=== PATIENT | male | born 1970 | race Two or more races ===

== ENCOUNTER 2024-10-28 23:07 | Inpatient (IN) | payer MEDICAID, OTHER ==
[~2024-10-28] VITALS: Ht 165.1 cm; Wt 94.1 kg
[2024-10-29] MEDS: ONDANSETRON HCL 4 MG/2 ML VIAL IV ONE
--- NOTE | 2024-10-29 00:14 | ED.PDOC ---
GI ASSESSMENT HPI Comments 54-year-old male came to ER fo abdominal pain. Patient states he has been experiencing diffuse abdominal pain, intermittent, aching for the past 3 days. Noted have episodes of nausea, vomiting, diarrhea and loss of appetite. States he could not keep anything in. Denies any history of abdominal surgeries. Chief Complaint: Abdominal pain Time Seen by MD: 00:13 Reviewed Notes: Nurses Notes Allergies: Coded Allergies: No Known Drug Allergy (Verified Allergy, Unknown, 10/29/24) Information Source: Patient Mode of Arrival: Ambulatory Timing: Days Duration: Intermittent Prehospital treatment: None Quality: Aching Vomitus: Watery Stool: Loose, Watery Severity: Moderate Recent: None Recent Hx of: None Pain Location: Diffuse Associated sign and symptoms: Nausea, Vomiting, Diarrhea, Abdominal Pain, Anorexia Past Medical History PAST MEDICAL HISTORY: DM Surgical History: Denies all surgeries Family History Family History: Reviewed,noncontributory to illness Social History Smoker: Non-Smoker Alcohol: Denies ETOH Use Drugs: Denies Drug Use Lives In: Home Constitutional: denies: chills, diaphoresis, fatigue, fever, malaise, sweats, weakness, others EENTM: denies: blurred vision, double vision, ear bleeding, ear discharge, ear drainage, ear pain, ear ringing, eye pain, eye redness, hearing loss, mouth pain, mouth swelling, nasal discharge, nose bleeding, nose congestion, nose pain, photophobia, tearing, throat pain, throat swelling, voice changes, others Respiratory: denies: cough, hemoptysis, orthopnea, SOB at rest, shortness of breath, SOB with excertion, stridor, wheezing, others Cardiovascular: denies: chest pain, dizzy spells, diaphoresis, Dyspnea on exertion, edema, irregular heart beat, left arm pain, lightheadedness, palpitations, PND, syncope, others Gastrointestinal: reports: abdominal pain, diarrhea, nausea, poor appetite, vomiting; denies: abdomen distended, blood streaked bowels, constipated, dysphagia, difficulty swallowing, hematemesis, melena, poor fluid intake, rectal bleeding, rectal pain, others Genitourinary: denies: burning, dysuria, flank pain, frequency, hematuria, incontinence, penile discharge, penile sore, pain, testicle pain, testicle swelling, urgency, others Neurological: denies: dizziness, fainting, headache, left sided numbness, left sided weakness, numbness, paresthesia, pre-existing deficit, right sided numbness, right sided weakness, seizure, speech problems, tingling, tremors, weakness, others Musculoskeletal: denies: back pain, gout, joint pain, joint swelling, muscle pain, muscle stiffness, neck pain, others Integumetry: denies: bruises, change in color, change in hair/nails, dryness, laceration, lesions, lumps, rash, wounds, others Allergic/Immunocompromised: denies: Difficulty Healing, Frequent Infections, Hives, Itching, others Hematologic/Lymphatic: denies: anemia, blood clots, easy bleeding, easy bruising, swollen glands, others Endocrine: denies: excessive hunger, excessive sweating, excessive thirst, excessive urination, flushing, intolerance to cold, intolerance to heat, unexplained weight gain, unexplained weight loss, others Psychiatric: denies: anxiety, bipolar disorder, depression, hopeless, panic disorder, schizophrenia, sleepless, suicidal, others Physical Exam General Appearance: No Apparent Distress, Obese HEENT: Other (Pupils and face symmetric. Moist mucous membranes.) Neck: Full Range of Motion, Normal Inspection Respiratory: Lungs Clear, No Accessory Muscle Use, No Respiratory Distress, Normal Breath Sounds Cardiovascular: No Edema, No JVD, Regular Rate/Rhythm Breast Exam: Deferred Gastrointestinal: Diffuse, Soft, Tenderness Genitalia: Deferred Pelvic: Deferred Rectal: Deferred Extremities: Normal inspection, Normal range of motion, Non-tender, No pedal edema Neurologic: Alert (Oriented x4), Normal Affect, Normal Mood, Other (Ambulatory) Cerebellar Function: NOT DONE Reflexes: NOT DONE Skin: Dry, Normal Color, Warm Lymphatic: NOT DONE Was a procedure done? Was a procedure done?: No GI differential Dx Differential Diagnosis: Cholecystitis, Diverticular disease, Gastritis/PUD, Gastroenteritis, Ischemic Bowel, Pancreatitis, UTI, Urolithiasis, Dehydration, Diabetes/ DKA, Electrolyte Imbalance, Food Poisoning, Bacterial, Viral, Hypovolemia, Renal Failure, Stress Ulcer X-Ray, Labs, Meds, VS Vital Signs Date Time Temp Pulse Resp B/P (MAP) Pulse Ox O2 Delivery O2 Flow Rate FiO2 10/29/24 03:08 98.2 88 20 165/91 (115) 98 98.2 10/29/24 03:08 88 20 98 Room Air 10/29/24 02:30 98.2 84 20 151/86 (107) 98 98.2 10/29/24 00:32 97.6 83 18 145/90 (108) 98 97.6 Lab Test 10/29/24 02:12 10/29/24 01:17 10/29/24 00:13 10/28/24 23:50 Range/Units Lactic Acid Level 1.9 2.7 *H 0.4-2.0 mmol/L Troponin I High Sensitivity 3 L 3 L </=54 ng/L White Blood Count 8.3 4.4-10.8 10^3/uL Red Blood Count 5.18 4.5-5.90 10^6/uL Hemoglobin 14.6 13.5-17.5 g/dL Hematocrit 43.8 41.0-53.0 % Mean Corpuscular Volume 84.5 80.0-100.0 fL Mean Corpuscular Hemoglobin 28.2 28.0-32.0 pg Mean Corpuscular Hemoglobin Concent 33.4 32.0-36.0 g/dL Red Cell Distribution Width 13.7 11.8-14.3 % Platelet Count 310 140-450 10^3/uL Mean Platelet Volume 8.8 6.9-10.8 fL Neutrophils (%) (Auto) 57.1 37.0-80.0 % Lymphocytes (%) (Auto) 34.2 10.0-50.0 % Monocytes (%) (Auto) 7.6 0.0-12.0 % Eosinophils (%) (Auto) 0.7 0.0-7.0 % Basophils (%) (Auto) 0.4 0.0-2.0 % Neutrophils # (Auto) 4.8 1.6-8.6 10 ^3/uL Lymphocytes # (Auto) 2.9 0.4-5.4 10 ^3/uL Monocytes # (Auto) 0.6 0-1.3 10 ^3/uL Eosinophils # (Auto) 0.1 0-0.8 10 ^3/uL Basophils # (Auto) 0 0-0.2 10 ^3/uL Nucleated Red Blood Cells 0.2 % Sodium Level 143 136-145 mmol/L Potassium Level 3.9 3.5-5.1 mmol/L Chloride Level 102 98-107 mmol/L Carbon Dioxide Level 30 20-31 mmol/L Anion Gap 11 5-15 Blood Urea Nitrogen 13 9-23 mg/dL Creatinine 1.10 0.700-1.30 mg/dL Glomerular Filtration Rate Calc 80 >90 mL/min BUN/Creatinine Ratio 11.8 10.0-20.0 Serum Glucose 138 H 74-106 mg/dL Calcium Level 10.0 8.7-10.4 mg/dL Total Bilirubin 0.7 0.2-1.0 mg/dL Aspartate Amino Transferase (AST) 13 <34 U/L Alanine Aminotransferase (ALT) 11 7-40 U/L Alkaline Phosphatase 63 46-116 U/L Total Protein 8.1 5.7-8.2 g/dL Albumin 5.1 H 3.2-4.8 g/dL Lipase 196 H 12-53 U/L Urine Color Yellow Yellow Urine Clarity Clear Clear Urine pH 5.5 5.0-9.0 Urine Specific [place] 1.020 1.001-1.035 Urine Protein Trace H Negative Urine Ketones 1+ H Negative Urine Blood Negative Negative /uL Urine Nitrite Negative Negative Urine Bilirubin Negative Negative Urine Urobilinogen Normal Negative mg/dL Urine Leukocyte Esterase Negative Negative /uL Urine RBC None seen 0 - 3 /hpf Urine Microscopic WBC 3 0-3 /HPF Urine Squamous Epithelial Cells Few <5 /hpf Urine Bacteria None seen None Seen /hpf Urine Hyaline Casts Few 0 - 2 /lpf Urine Mucus Few None Seen Urine Glucose Normal Normal mg/dL Current Medications Medications (Trade) Dose Ordered Sig/Randall Route Start Time Stop Time Status Last Admin Sodium Chloride 2,000 ml @ 1,000 mls/hr Q2H ONCE IV 10/29/24 00:00 10/29/24 01:59 DC 10/29/24 03:23 Pantoprazole Sodium (Protonix) 40 mg ONCE ONCE IV 10/29/24 00:00 10/29/24 00:01 DC 10/29/24 03:23 Ceftriaxone Sodium/Dextrose 50 ml @ 50 mls/hr ONCE ONCE IV 10/29/24 01:30 10/29/24 02:29 DC 10/29/24 03:24 Exam: CT CT AB PEL WO CON-NO ORAL OR IV History: abd pain, n/v/d Comparison Study: None TECHNIQUE: Multidetector CT of the abdomen and pelvis was performed from lung bases to pubic symphysis. Imaging was performed without IV contrast. Axial, coronal, and sagittal multiplanar reformats were obtained from the axial data set by the technologist. RADIATION DOSE: DLP 1005.72 mGy.cm; CTDI vol 15.3 mGy. Findings: Limited evaluation of the solid organs in the absence of IV contrast. Liver: Unremarkable. Spleen: Unremarkable. Pancreas: Unremarkable. Gallbladder: Unremarkable. Adrenals: Unremarkable Kidneys: Bilateral nephrolithiasis. No hydronephrosis. There is contour irr egularity of the bilateral kidneys and bilateral perinephric stranding. Pelvic Viscera: Unremarkable. Vasculature: Mild atherosclerotic aortoiliac calcifications. Retroperitoneum: Shotty retroperitoneal nodes. No ascites. Bowel: Colonic diverticulosis without CT evidence of diverticulitis. No bowel obstruction. The appendix is normal. Musculoskeletal: Unremarkable. Soft tissues: Unremarkable. Lungs: The lung bases are clear. Impression: 1. Contour irregularity of the bilateral kidneys and perinephric stranding, age- indeterminate. Further clinical correlation and comparison with any prior outside imaging may be helpful in assessing acuity and interval change. Pyelonephritis cannot be excluded in the appropriate clinical setting. A postcontrast CT is suggested in further assessment as clinically indicated. 2. Incidental findings as detailed. X-Ray, Labs, Meds, VS Comment 54-year-old male with a history of diabetes complaining of abdominal pain, nausea, vomiting, diarrhea and inability to tolerate foods Vitals remarkable for BP 145/90 Exam remarkable for diffuse abdominal tenderness to palpation Rhythm strip independently interpreted by me: Sinus rhythm, rate 83, no ectopy. CT abdomen and pelvis Impression: 1. Contour irregularity of the bilateral kidneys and perinephric stranding, age- indeterminate. Further clinical correlation and comparison with any prior outside imaging may be helpful in assessing acuity and interval change. Pyelonephritis cannot be excluded in the appropriate clinical setting. A postcontrast CT is suggested in further assessment as clinically indicated. 2. Incidental findings as detailed. CBC and CMP unremarkable, lipase 196, UA pending, lactate 2.7 Patient treated with the following in the ED: 2 L 0.9 normal saline IV bolus, Zofran 4 mg IV, morphine 4 mg IV, Protonix 40 mg IV, Rocephin 2 g IV On re-evaluation, patient states pain has improved. Vitals were stable. Plan is to admit the patient for lactate and lipase trend, and IV antibiotics to cover possible pyelonephritis/sepsis. Time of 1ST Reevaluation: 00:02 Reevaluation 1ST: Unchanged Patient Education/Counseling: Diagnosis, Treatment Family Education/Counseling: Diagnosis, Treatment SEPSIS Sepsis Screen Physician Orders Ct Ab Pel Wo Con-No Oral Or Iv (10/28/24 23:53) Blood Culture (10/28/24 23:53) Vital Signs Date Time Temp Pulse Resp B/P (MAP) Pulse Ox O2 Delivery O2 Flow Rate FiO2 10/29/24 03:08 98.2 88 20 165/91 (115) 98 98.2 10/29/24 03:08 88 20 98 Room Air 10/29/24 02:30 98.2 84 20 151/86 (107) 98 98.2 10/29/24 00:32 97.6 83 18 145/90 (108) 98 97.6 Laboratory Tests Test 10/29/24 00:13 10/29/24 02:12 Lactic Acid Level 2.7 mmol/L (0.4-2.0) *H 1.9 mmol/L (0.4-2.0) White Blood Count 8.3 10^3/uL (4.4-10.8) Medications Medications Dose Ordered Sig/Randall Route Start Time Stop Time Status Last Admin Dose Admin Ceftriaxone Sodium/Dextrose 50 ml @ 50 mls/hr ONCE ONCE IV 10/29/24 01:30 10/29/24 02:29 DC 10/29/24 03:24 Pantoprazole Sodium 40 mg ONCE ONCE IV 10/29/24 00:00 10/29/24 00:01 DC 10/29/24 03:23 Sodium Chloride 2,000 ml @ 1,000 mls/hr Q2H ONCE IV 10/29/24 00:00 10/29/24 01:59 DC 10/29/24 03:23 Departure 1 Departure Time of Disposition: 01:34 Impression: Primary Impression: Acute pancreatitis Additional Impressions: Elevated lactic acid level Pyelonephritis Disposition: 09 ADMITTED INPATIENT Admit to: Med Surg Condition: Guarded Critical Care Note Critical Care Time?: No Stability Stability form required: No Heart Score Heart Score: Heart Score Response (Comments) Value History N/A 0 EKG N/A 0 Age N/A 0 Risk Factors N/A 0 Troponin N/A 0 Total 0 I personally scribed for CASH MCMULLEN MD ([email or web address]) on 10/29/24 at 00:14. Electronically submitted by Ethan Cleary ([facility]). I personally scribed for CASH MCMULLEN MD ([email or web address]) on 10/29/24 at 00:50. Electronically submitted by Ethan Cleary ([facility]). CASH MCMULLEN MD Oct 29, 2024 00:14
--- NOTE | 2024-10-29 00:36 | DVH ---
Exam: CT CT AB PEL WO CON-NO ORAL OR IV History: abd pain, n/v/d Comparison Study: None TECHNIQUE: Multidetector CT of the abdomen and pelvis was performed from lung bases to pubic symphysi s. Imaging was performed without IV contrast. Axial, coronal, and sagittal multiplanar reformats were obtained from the axial data set by the technologist. RADIATION DOSE: DLP 1005.72 mGy.cm; CTDI vol 15.3 mGy. Findings: Limited evaluation of the solid organs in the absence of IV contrast. Liver: Unremarkable. Spleen: Unremarkable. Pancreas: Unremarkable. Gallbladder: Unremarkable. Adrenals: Unremarkable Kidneys: Bilateral nephrolithiasis. No hydronephrosis. There is contour irregularity of the bilateral kidneys and bilateral perinephric stranding. Pelvic Viscera: Unremarkable. Vasculature: Mild atherosclerotic aortoiliac calcifications. Retroperitoneum: Shotty retroperitoneal nodes. No ascites. Bowel: Colonic diverticulosis without CT evidence of diverticulitis. No bowel obstruction. The append ix is normal. Musculoskeletal: Unremarkable. Soft tissues: Unremarkable. Lungs: The lung bases are clear. Impression: 1. Contour irregularity of the bilateral kidneys and perinephric stranding, age-indeterminate. Furthe r clinical correlation and comparison with any prior outside imaging may be helpful in assessing acui ty and interval change. Pyelonephritis cannot be excluded in the appropriate clinical setting. A post contrast CT is suggested in further assessment as clinically indicated. 2. Incidental findings as detailed.
[2024-10-29 00:54] LABS: Basophils # (auto) 0 10 ^3/uL (0-0.2); Basophils % (auto) 0.4 % (0.0-2.0); Eosinophils # (auto) 0.1 10 ^3/uL (0-0.8); Eosinophils % (auto) 0.7 % (0.0-7.0); Hematocrit 43.8 % (41.0-53.0); Hemoglobin 14.6 g/dL (13.5-17.5); Lymphocytes # (auto) 2.9 10 ^3/uL (0.4-5.4); Lymphocytes % (auto) 34.2 % (10.0-50.0); Mean Corpuscular Hemoglobin 28.2 pg (28.0-32.0); Mean Corpuscular Hgb Conc. 33.4 g/dL (32.0-36.0); Mean Corpuscular Volume 84.5 fL (80.0-100.0); Monocytes # (auto) 0.6 10 ^3/uL (0-1.3); Monocytes % (auto) 7.6 % (0.0-12.0); Neutrophils # (auto) 4.8 10 ^3/uL (1.6-8.6); Neutrophils % (auto) 57.1 % (37.0-80.0); Nucleated Red Blood Cells % 0.2 %; Platelet Count (auto) 310 10^3/uL (140-450); Red Blood Cells 5.18 10^6/uL (4.5-5.90); Red Cell Distribution Width 13.7 % (11.8-14.3); White Blood Cell 8.3 10^3/uL (4.4-10.8)
[2024-10-29 01:10] LABS: Alanine Aminotransferase 11 U/L (7-40); Alkaline Phosphatase 63 U/L (46-116); Anion Gap 11 (5-15); Aspartate Aminotransferase 13 U/L (<34); BUN/Creatinine Ratio 11.8 (10.0-20.0); Bilirubin, Total 0.7 mg/dL (0.2-1.0); Blood Urea Nitrogen 13 mg/dL (9-23); Carbon Dioxide 30 mmol/L (20-31); Chloride 102 mmol/L (98-107); Potassium 3.9 mmol/L (3.5-5.1); Sodium 143 mmol/L (136-145); Total Protein 8.1 g/dL (5.7-8.2)
[2024-10-29 01:21] LABS: Lactic Acid w/Reflex 2.7 mmol/L (0.4-2.0)
[2024-10-29 01:25] LABS: Albumin 5.1 g/dL (3.2-4.8); Glucose 138 mg/dL (74-106); Lipase 196 U/L (12-53)
[2024-10-29 02:51] LABS: Urine Blood Negative /uL (Negative); Urine Clarity Clear (Clear); Urine Color Yellow (Yellow); Urine Hyaline Cast FEW /lpf (0 - 2); Urine Mucus FEW (None Seen); Urine Protein, UAD TRACE (Negative); Urine Squamous Epithelial Cell FEW /hpf (<5); Urine Urobilinogen Normal (Negative); Urine WBC 3 /HPF (0-3); Urine pH 5.5 (5.0-9.0)
[2024-10-29 02:52] LABS: Urine Bacteria NONE SEEN /hpf (None Seen)
[2024-10-29] MEDS: PANTOPRAZOLE 40 MG/10 ML VIAL INJ IV ONE (03:23)
[2024-10-29] MEDS: SODIUM CHLORIDE 0.9% 2,000 ML IV ONE (03:23)
[2024-10-29] MEDS: MORPHINE SULFATE 4 MG/ML SYR/VIAL IV ONE (03:23)
[2024-10-29] MEDS: cefTRIAXone 2GM/50ML D5W 50 ML IV ONE (03:24)
--- NOTE | 2024-10-29 04:18 | DVHHPRES ---
History of Present Illness Resident Creating Document: NIKHIL SIMS RESIDENT History of Present Illness 54-year-old male patient with past medical history of diabetes and hypertension presented with complaints of abdominal pain. Patient described that he has diffuse abdominal pain which is pressure-like, on and off for last three days which is associated with nausea and vomiting and diarrhea. Patient had two episodes of vomiting every day but did not contain any blood. Patient also had two episodes of loose stools every day for last three days. Patient denied any chest pain, shortness of breath, fever, chills, cough, urinary symptoms. Past medical history Hypertension Diabetes Past surgical history Denied recent surgery Medication history Metformin Social history Patient consumes occasional marijuana Denied smoking, alcohol, other drugs Family history Noncontributory Review of Systems Review of Systems As described in the HPI. Allergies: Coded Allergies: No Known Drug Allergy (Verified Allergy, Unknown, 10/29/24) Exam Vital Signs Vital Signs Date Time Temp Pulse Resp B/P (MAP) Pulse Ox O2 Delivery O2 Flow Rate FiO2 10/29/24 03:08 98.2 88 20 165/91 (115) 98 98.2 10/29/24 03:08 Room Air Exam Examination General Appearance: Alert, Oriented X3, Cooperative, No acute distress HEENT: EOMI Respiratory: Clear to auscultation, Normal air movement Cardiovascular: Regular rate, Normal S1, Normal S2 Abdominal: Normal bowel sounds Extremities: No cyanosis, No edema, Normal pulses, No tenderness/swelling Skin: No rashes, No breakdown Neuro: Normal gait, Normal speech, Strength at 5/5 X4 ext, Normal tone, Sensation intact, Cranial nerves 3-12 NL, Reflexes 2+ Psych/Mental Status: Mental status NL, Mood NL Labs/Xrays Labs Test 10/29/24 02:12 10/29/24 01:17 10/29/24 00:13 10/28/24 23:50 Range/Units Lactic Acid Level 1.9 0.4-2.0 mmol/L Troponin I High Sensitivity 3 L </=54 ng/L White Blood Count 8.3 4.4-10.8 10^3/uL Red Blood Count 5.18 4.5-5.90 10^6/uL Hemoglobin 14.6 13.5-17.5 g/dL Hematocrit 43.8 41.0-53.0 % Mean Corpuscular Volume 84.5 80.0-100.0 fL Mean Corpuscular Hemoglobin 28.2 28.0-32.0 pg Mean Corpuscular Hemoglobin Concent 33.4 32.0-36.0 g/dL Red Cell Distribution Width 13.7 11.8-14.3 % Platelet Count 310 140-450 10^3/uL Mean Platelet Volume 8.8 6.9-10.8 fL Neutrophils (%) (Auto) 57.1 37.0-80.0 % Lymphocytes (%) (Auto) 34.2 10.0-50.0 % Monocytes (%) (Auto) 7.6 0.0-12.0 % Eosinophils (%) (Auto) 0.7 0.0-7.0 % Basophils (%) (Auto) 0.4 0.0-2.0 % Neutrophils # (Auto) 4.8 1.6-8.6 10 ^3/uL Lymphocytes # (Auto) 2.9 0.4-5.4 10 ^3/uL Monocytes # (Auto) 0.6 0-1.3 10 ^3/uL Eosinophils # (Auto) 0.1 0-0.8 10 ^3/uL Basophils # (Auto) 0 0-0.2 10 ^3/uL Nucleated Red Blood Cells 0.2 % Sodium Level 143 136-145 mmol/L Potassium Level 3.9 3.5-5.1 mmol/L Chloride Level 102 98-107 mmol/L Carbon Dioxide Level 30 20-31 mmol/L Anion Gap 11 5-15 Blood Urea Nitrogen 13 9-23 mg/dL Creatinine 1.10 0.700-1.30 mg/dL Glomerular Filtration Rate Calc 80 >90 mL/min BUN/Creatinine Ratio 11.8 10.0-20.0 Serum Glucose 138 H 74-106 mg/dL Calcium Level 10.0 8.7-10.4 mg/dL Total Bilirubin 0.7 0.2-1.0 mg/dL Aspartate Amino Transferase (AST) 13 <34 U/L Alanine Aminotransferase (ALT) 11 7-40 U/L Alkaline Phosphatase 63 46-116 U/L Total Protein 8.1 5.7-8.2 g/dL Albumin 5.1 H 3.2-4.8 g/dL Lipase 196 H 12-53 U/L Urine Color Yellow Yellow Urine Clarity Clear Clear Urine pH 5.5 5.0-9.0 Urine Specific [place] 1.020 1.001-1.035 Urine Protein Trace H Negative Urine Ketones 1+ H Negative Urine Blood Negative Negative /uL Urine Nitrite Negative Negative Urine Bilirubin Negative Negative Urine Urobilinogen Normal Negative mg/dL Urine Leukocyte Esterase Negative Negative /uL Urine RBC None seen 0 - 3 /hpf Urine Microscopic WBC 3 0-3 /HPF Urine Squamous Epithelial Cells Few <5 /hpf Urine Bacteria None seen None Seen /hpf Urine Hyaline Casts Few 0 - 2 /lpf Urine Mucus Few None Seen Urine Glucose Normal Normal mg/dL Assessment/Plan Assessment/Plan Assessment/plan # intractable abdominal pain ? Pancreatitis ?Pyelonephritis ?bilateral nephrolithiasis -IV fluids IV antibiotics UACOM lipase CT shows Contour irregularity of the bilateral kidneys and perinephric stranding, age-indeterminate. NPO #elevated lactic acid due to above ?sepsis IV fluids Blood culture MRSA screen #Colonic diverticulosis without CT evidence of diverticulitis -seen on CT #bilateral nephrolithiasis -seen on CT #Shotty Retroperitoneal LN -seen on CT #DM2 -mild sliding scale #Shotty retroperitoneal nodes # hypertension Monitor blood pressure Insulin Case discussed with Dr. Gee Plan discussed with: Patient, Other My Orders Orders - NIKHIL SIMS Procedure Category Date Status Time Admit ADMIT 10/29/24 Transmitted 04:15 Date of Service: Oct 29, 2024 Billing Provider: PATRICIA GEE MD Common Visit Codes: [id number] INP/OBS CARE (HIGH) Secondary Visit Codes: [id number] CARE PLAN 30 MINUTES NIKHIL SIMS RESIDENT Oct 29, 2024 04:18
[2024-10-29] MEDS: LACTATED RINGER'S 1,000 ML IV SCH (06:15)
[2024-10-29] MEDS ORDERED: DEXTROSE (50%) 50ML SYRG IV PRN (06:15)
[2024-10-29] MEDS: levoFLOXacin 500MG 100 ML IV ONE (06:53)
[2024-10-29 07:00] LABS: Triglycerides 105 mg/dL (< 150)
[2024-10-29 07:02] LABS: Cholesterol 222 mg/dL (< 200); HDL Cholesterol 51 mg/dL (40-59); LDL Cholesterol 155 mg/dL (< 100)
[2024-10-29 07:12] LABS: Erythrocyte Sedimentation Rate 17 mm/hr (0-20)
[2024-10-29 07:31] LABS: INR 1.06 (0.9-1.15); Partial Thromboplastin Time 28.6 SEC (24.5-34.5); Prothrombin Time 11.2 sec (9.3-11.8)
[2024-10-29 07:37] LABS: COVID19 ANTIGEN SOFIA FIA NEGATIVE (NEGATIVE)
--- NOTE | 2024-10-29 08:25 | DVH ---
Technique: Real-time ultrasound imaging of the abdomen was performed with grayscale and color Doppler . Indication: pyelonephritis,ABD PAIN Comparison: 10/29/2024 CT abdomen pelvis Findings: Liver measures 17.5 cm. It is increased in echogenicity and echotexture without focal mass. Portal v ein is normal in caliber and demonstrates normal hepatopetal flow. Gallbladder demonstrates no evidence for cholelithiasis. There is no pericholecystic fluid. The wall thickness is normal. The common bile duct is nonvisualized. No intrahepatic biliary ductal dilatation. The right kidney measures 10.9 cm. The left kidney measures 10.8 cm. No hydronephrosis nonobstructing bilateral renal calculi up to approximately 3 mm. Possible right renal midpole echoic lesion measuri ng 2.6 cm The visualized portion of the pancreas is unremarkable. Spleen measures cm. The visualized portion of the IVC is unremarkable. Aorta measures up to 1.6 cm in diameter. Impression: Possible right renal isoechoic lesion measuring 2.6 cm. Recommend MRI abdomen with and without contr ast. Nonobstructing right renal calculi. Echogenic liver which can be seen with hepatic steatosis, cirrhosis. Hepatomegaly Common bile duct not visualized. Further characterization with MRCP can be obtained as clinically ind icated.
[2024-10-29 08:55] VITALS: BP 158/86; PULSE 75; RESP 18; TEMP 98; O2SAT 97
[2024-10-29] MEDS: ACCU-CHEK COMFORT CURVE STRIP VI SCH (12:00)
[2024-10-29] MEDS: InsuLIN REG 1unit/0.01ml Soln (100units/ml) SC SCH (12:00)
[2024-10-29 12:46] VITALS: BP 158/81; PULSE 98; RESP 20; TEMP 98; O2SAT 98
--- NOTE | 2024-10-29 14:04 | DVHPNRES ---
Progress Note Date Seen: Oct 29, 2024 Resident Creating Document: MICHELLE DOS SANTOS RESIDENT Has the PT tested + for MRSA If YES, has PT been informed?: No Medical Necessity Reason Pt with a Central, PICC or Fol: No Subjective Review of Systems 54-year-old male patient with past medical history of diabetes and hypertension presented with complaints of abdominal pain. Patient described that he has diffuse abdominal pain which is pressure-like, on and off for last three days which is associated with nausea and vomiting and diarrhea. Patient had two episodes of vomiting every day but did not contain any blood. Patient also had two episodes of loose stools every day for last three days. Patient denied any chest pain, shortness of breath, fever, chills, cough, urinary symptoms. Past medical history Hypertension Diabetes Medication history Metformin Social history Patient consumes occasional marijuana 10/29/24: abdomen CT scan showed Contour irregularity of the bilateral kidneys and perinephric stranding, abdomen US Nonobstructing right renal calculi, hepatomegaly, Possible right renal isoechoic lesion measuring 2.6 cm, pain improved but multiple kidney stones were seen, strain urine and fluids Objective vital signs Vital Sign Date Time Temp Pulse Resp B/P (MAP) Pulse Ox O2 Delivery O2 Flow Rate FiO2 10/29/24 12:46 98.0 98 20 158/81 (106) 98 98.0 10/29/24 08:55 Room Air* 0 21 Total Intake and Output 10/28/24 10/28/24 10/29/24 15:00 23:00 07:00 Intake Total 2050 ml Balance 2050 ml medications Current Medications Medications Dose Ordered Sig/Randall Route Start Time Stop Time Status Last Admin Dose Admin Lactated Ringer's 1,000 ml @ 150 mls/hr [id number] IV 10/29/24 06:15 Levofloxacin/ Dextrose 100 ml @ 100 mls/hr Q24H IV 10/30/24 06:00 Diagnostic Test (Pha) 1 strip Q6HR 10/29/24 12:00 10/29/24 12:00 1 STRIP Insulin Human Regular Q6HR SC 10/29/24 12:00 Dextrose 50 ml UD PRN IV 10/29/24 06:15 Examination General Appearance: Alert, Oriented X3, Cooperative, No acute distress HEENT: EOMI Respiratory: Clear to auscultation, Normal air movement Cardiovascular: Regular rate, Normal S1, Normal S2 Abdominal: Normal bowel sounds Extremities: No cyanosis, No edema, Normal pulses, No tenderness/swelling Skin: No rashes, No breakdown Neuro: Normal gait, Normal speech, Strength at 5/5 X4 ext, Normal tone, Sensation intact, Cranial nerves 3-12 NL, Reflexes 2+ Psych/Mental Status: Mental status NL, Mood NL laboratory and microbiology Laboratory Tests 10/29/24 00:13 Test 10/29/24 00:13 Range/Units Serum Glucose 138 H 74-106 mg/dL Problem List/Assessment/Plan Problem List/Assessment/Plan # intractable abdominal pain ? Pancreatitis less likely ? Pyelonephritis bilateral nephrolithiasis -IV fluids given IV antibiotics UA normal lipase downtrending? CT shows Contour irregularity of the bilateral kidneys and perinephric stranding, age-indeterminate. Clear liquid diet #elevated lactic acid due to above ?sepsis IV fluids given Blood culture MRSA screen #Colonic diverticulosis without CT evidence of diverticulitis -seen on CT #bilateral nephrolithiasis -seen on CT #Shotty Retroperitoneal LN -seen on CT #DM2 -mild sliding scale #Shotty retroperitoneal nodes # hypertension Monitor blood pressure fluids stopped Insulin Case discussed with Dr. Kc Plan discussed with: Patient, Other Date of Service: Oct 29, 2024 Billing Provider: JUSTIN KC MD Common Visit Codes: [id number] INP/OBS CARE(HIGH) MICHELLE DOS SANTOS RESIDENT Oct 29, 2024 14:04 JUSTIN KC MD Nov 01, 2024 22:17
[2024-10-29 19:00] LABS: Urine Bacteria None Seen /hpf (None Seen)
[2024-10-29 19:57] LABS: Urine Blood Negative /uL (Negative); Urine Clarity Clear (Clear); Urine Color Light-Yellow (Yellow); Urine Mucus FEW (None Seen); Urine Protein, UAD Negative (Negative); Urine Specific Gravity 1.017 (1.001-1.035); Urine Squamous Epithelial Cell FEW /hpf (<5); Urine Urobilinogen Normal (Negative); Urine WBC 2 /HPF (0-3); Urine pH 5.5 (5.0-9.0)
[2024-10-29] MEDS ORDERED: SEMA7TAB2 PO (20:43)
[2024-10-29] MEDS ORDERED: METF-372 PO ×2 (20:43)
[2024-10-29 20:54] VITALS: BP 159/84; PULSE 66; RESP 16; TEMP 97.9; O2SAT 97
[2024-10-29 22:35] VITALS: PULSE 69; RESP 17; O2SAT 98
[2024-10-30] VITALS (7 sets, daily range): BP systolic 149–183; BP diastolic 74–85; PULSE 68–99; RESP 16–20; TEMP 97.2–98.3; O2SAT 95–97
[2024-10-30] MEDS: amLODIPine BESYLATE 5 MG TAB PO ONE (00:36)
[2024-10-30] MEDS: hydrALAZINE HCL 20 MG/ML VL IV PRN (02:08)
[2024-10-30] MEDS: levoFLOXacin 500MG 100 ML IV SCH (05:12)
[2024-10-30 05:49] LABS: Basophils # (auto) 0.1 10 ^3/uL (0-0.2); Basophils % (auto) 0.7 % (0.0-2.0); Eosinophils # (auto) 0.1 10 ^3/uL (0-0.8); Eosinophils % (auto) 1.1 % (0.0-7.0); Hematocrit 40.9 % (41.0-53.0); Hemoglobin 13.9 g/dL (13.5-17.5); Lymphocytes # (auto) 2.5 10 ^3/uL (0.4-5.4); Lymphocytes % (auto) 28.4 % (10.0-50.0); Mean Corpuscular Hemoglobin 28.4 pg (28.0-32.0); Mean Corpuscular Volume 83.5 fL (80.0-100.0); Monocytes # (auto) 0.7 10 ^3/uL (0-1.3); Monocytes % (auto) 7.9 % (0.0-12.0); Neutrophils # (auto) 5.4 10 ^3/uL (1.6-8.6); Neutrophils % (auto) 61.9 % (37.0-80.0); Nucleated Red Blood Cells % 0.1 %; Platelet Count (auto) 293 10^3/uL (140-450); Red Blood Cells 4.89 10^6/uL (4.5-5.90); Red Cell Distribution Width 13.8 % (11.8-14.3); White Blood Cell 8.7 10^3/uL (4.4-10.8)
[2024-10-30 06:10] LABS: Alkaline Phosphatase 58 U/L (46-116); Anion Gap 15 (5-15); BUN/Creatinine Ratio 10.6 (10.0-20.0); Blood Urea Nitrogen 9 mg/dL (9-23); Calcium 10.3 mg/dL (8.7-10.4); Carbon Dioxide 23 mmol/L (20-31); Chloride 104 mmol/L (98-107); Potassium 3.6 mmol/L (3.5-5.1); Sodium 142 mmol/L (136-145); Total Protein 7.6 g/dL (5.7-8.2)
[2024-10-30 06:11] LABS: Aspartate Aminotransferase 10 U/L (<34)
[2024-10-30 06:12] LABS: Bilirubin, Total 0.9 mg/dL (0.2-1.0)
[2024-10-30 06:22] LABS: Alanine Aminotransferase < 9 U/L (7-40); Albumin 4.8 g/dL (3.2-4.8); Glucose 115 mg/dL (74-106)
[2024-10-30] MEDS: hydrALAZINE HCL 20 MG/ML VL IV ONE (07:02)
[2024-10-30] MEDS: amLODIPine BESYLATE 5 MG TAB PO SCH (08:25)
--- NOTE | 2024-10-30 13:19 | DVHPNRES ---
Progress Note Date Seen: Oct 30, 2024 Resident Creating Document: MICHELLE DOS SANTOS RESIDENT Has the PT tested + for MRSA If YES, has PT been informed?: No Medical Necessity Reason Pt with a Central, PICC or Fol: No Subjective Review of Systems 54-year-old male patient with past medical history of diabetes and hypertension presented with complaints of abdominal pain. Patient described that he has diffuse abdominal pain which is pressure-like, on and off for last three days which is associated with nausea and vomiting and diarrhea. Patient had two episodes of vomiting every day but did not contain any blood. Patient also had two episodes of loose stools every day for last three days. Patient denied any chest pain, shortness of breath, fever, chills, cough, urinary symptoms. Past medical history Hypertension Diabetes Medication history Metformin Social history Patient consumes occasional marijuana 10/29/24: abdomen CT scan showed Contour irregularity of the bilateral kidneys and perinephric stranding, abdomen US Nonobstructing right renal calculi, hepatomegaly, Possible right renal isoechoic lesion measuring 2.6 cm, pain improved but multiple kidney stones were seen, strain urine and fluids 10/30/24: patient had an episode of epigastric abdominal pain with emesis, lipase negative, we will continue monitor Objective vital signs Vital Sign Date Time Temp Pulse Resp B/P (MAP) Pulse Ox O2 Delivery O2 Flow Rate FiO2 10/30/24 09:00 98.3 99 16 170/83 (112) 97 98.3 10/30/24 08:00 Room Air* 0 21 Total Intake and Output 10/29/24 10/29/24 10/30/24 15:00 23:00 07:00 Intake Total 100 ml 850 ml Output Total 250 ml Balance 100 ml 600 ml medications Current Medications Medications Dose Ordered Sig/Randall Route Start Time Stop Time Status Last Admin Dose Admin Levofloxacin/ Dextrose 100 ml @ 100 mls/hr Q24H IV 10/30/24 06:00 10/30/24 05:12 100 MLS/HR Diagnostic Test (Pha) 1 strip Q6HR 10/29/24 12:00 10/30/24 11:50 1 STRIP Insulin Human Regular Q6HR SC 10/29/24 12:00 10/30/24 05:22 2 UNITS Dextrose 50 ml UD PRN IV 10/29/24 06:15 Hydralazine HCl 10 mg Q6HP PRN IV 10/30/24 00:15 10/30/24 02:08 10 MG Amlodipine Besylate 5 mg DAILY PO 10/30/24 10:00 10/30/24 08:25 5 MG Examination General Appearance: Alert, Oriented X3, Cooperative, No acute distress HEENT: EOMI Respiratory: Clear to auscultation, Normal air movement Cardiovascular: Regular rate, Normal S1, Normal S2 Abdominal: mild tenderness at palpation in epigastrium and mesogastrium Extremities: No cyanosis, No edema, Normal pulses, No tenderness/swelling Skin: No rashes, No breakdown Neuro: Normal gait, Normal speech, Strength at 5/5 X4 ext, Normal tone, Sensation intact, Cranial nerves 3-12 NL, Reflexes 2+ Psych/Mental Status: Mental status NL, Mood NL laboratory and microbiology Laboratory Tests 10/30/24 04:42 Test 10/30/24 04:42 Range/Units Serum Glucose 115 H 74-106 mg/dL Microbiology Date/Time Source Procedure Growth Status 10/30/24 01:55 Nose MRSA Screen - Final Complete 10/29/24 18:56 Voided Urine Urine Culture - Preliminary Resulted 10/29/24 00:20 Blood Blood Culture - Preliminary NO GROWTH AFTER 24 HOURS OF INCUBATION. Resulted Labs and/or images reviewed: Labs reviewed by me, Image(s) reviewed by me Problem List/Assessment/Plan Problem List/Assessment/Plan #Intractable abdominal pain; most likely due to GLP-1 induced pancreatitis -IV fluids given IV antibiotics UA normal lipase downtrending CT shows Contour irregularity of the bilateral kidneys and perinephric stranding, age-indeterminate: due to the epigastric pain today we will continue monitor Clear liquid diet #Elevated lactic acid due to above #Can not rule out sepsis due to above IV fluids given IV antibiotics Blood culture MRSA screen #Colonic diverticulosis without CT evidence of diverticulitis -seen on CT #bilateral nephrolithiasis -seen on CT #Shotty Retroperitoneal LN -seen on CT #DM2 -mild sliding scale Patient was taken semaglutide, is advised to DC due to the risk of pancreatitis #Shotty retroperitoneal nodes #Essential hypertension amlodipine and losartan started Monitor blood pressure fluids stopped #Marijuana use disorder Counseled the patient for 16 minutes on marijuana cessation Goals of care discussed with the patient and family for 20 minutes; full code Case discussed with Dr. Walter Plan discussed with: Patient, Other (RN) My Orders My Orders Orders - MICHELLE DOS SANTOS RESIDENT Procedure Category Date Status Time Strain All Urine For SPEEDY 10/29/24 In Process Stones 16:08 Clear Liq Diet DIET 10/29/24 Transmitted Dinner Addendum Addendum Addendum I was physically present for the arellano portions of the service provided to patient by THE RESIDENT. I have reviewed the documentation, discussed the case with resident and agree with the resident's documentation except as noted. Also the patient's clinical case was discussed with the patient's nurse. This medical document was created using an electronic medical record system with computerized dictation system. Although this document has been carefully reviewed, there might still be some phonetic and typographical errors. These areas are purely typographical due to imperfections of the software programs, and do not reflect any compromise in the patient's medical care. Late signature. Date of Service: Oct 30, 2024 Billing Provider: MICHELLE WALTER MD Common Visit Codes: 70166-[id number] INP/OBS CARE(HIGH) Secondary Visit Codes: 36346-ETVFP CHNG SMOKING >10MIN (Counseled on marijuana use cessation for 16 minutes), 69607-[id number] CARE PLAN 30 MINUTES (20 minutes) MICHELLE DOS SANTOS RESIDENT Oct 30, 2024 13:19 MICHELLE WALTER MD Nov 01, 2024 05:43
[2024-10-30] MEDS: LOSARTAN POTASSIUM 50 MG TAB PO SCH (16:14)
[2024-10-30] MEDS: ACETAMINOPHEN 325 MG TAB PO ONE (18:01)
[2024-10-31 01:00] VITALS: BP 135/80; PULSE 89; RESP 18; TEMP 97.8; O2SAT 97
[2024-10-31 05:00] VITALS: BP 133/75; PULSE 85; RESP 17; TEMP 97.8; O2SAT 97
[2024-10-31 06:32] LABS: Basophils # (auto) 0 10 ^3/uL (0-0.2); Basophils % (auto) 0.6 % (0.0-2.0); Eosinophils # (auto) 0.1 10 ^3/uL (0-0.8); Eosinophils % (auto) 1.2 % (0.0-7.0); Hematocrit 42.6 % (41.0-53.0); Hemoglobin 14.6 g/dL (13.5-17.5); Lymphocytes # (auto) 2.3 10 ^3/uL (0.4-5.4); Lymphocytes % (auto) 31.1 % (10.0-50.0); Mean Corpuscular Hemoglobin 28.7 pg (28.0-32.0); Mean Corpuscular Hgb Conc. 34.2 g/dL (32.0-36.0); Mean Corpuscular Volume 83.8 fL (80.0-100.0); Monocytes # (auto) 0.7 10 ^3/uL (0-1.3); Monocytes % (auto) 9.8 % (0.0-12.0); Neutrophils # (auto) 4.2 10 ^3/uL (1.6-8.6); Neutrophils % (auto) 57.3 % (37.0-80.0); Nucleated Red Blood Cells % 0.1 %; Platelet Count (auto) 280 10^3/uL (140-450); Red Blood Cells 5.08 10^6/uL (4.5-5.90); Red Cell Distribution Width 13.7 % (11.8-14.3); White Blood Cell 7.4 10^3/uL (4.4-10.8)
[2024-10-31 06:54] LABS: Alanine Aminotransferase 10 U/L (7-40); Alkaline Phosphatase 55 U/L (46-116); Anion Gap 13 (5-15); BUN/Creatinine Ratio 8.1 (10.0-20.0); Blood Urea Nitrogen 7 mg/dL (9-23); Calcium 10.3 mg/dL (8.7-10.4); Carbon Dioxide 23 mmol/L (20-31); Chloride 107 mmol/L (98-107); Glucose 95 mg/dL (74-106); Potassium 3.5 mmol/L (3.5-5.1); Sodium 143 mmol/L (136-145); Total Protein 7.2 g/dL (5.7-8.2)
[2024-10-31 06:55] LABS: Albumin 4.6 g/dL (3.2-4.8); Aspartate Aminotransferase 10 U/L (<34); Bilirubin, Total 0.8 mg/dL (0.2-1.0)
[2024-10-31 09:00] VITALS: BP 150/95; PULSE 69; RESP 17; TEMP 97.6; O2SAT 97
[2024-10-31] MEDS ORDERED: LOSA-534 PO (11:36)
--- NOTE | 2024-10-31 12:06 | DVHDSRES ---
Discharge Summary Date of Admission Resident Creating Document: MICHELLE DOS SANTOS RESIDENT Oct 29, 2024 at 04:15 Date of Discharge: Oct 31, 2024 Admitting Diagnosis Abdominal pain Labs/Diagnostic Data: Laboratory Results Test 10/31/24 11:16 10/31/24 05:01 10/30/24 04:42 10/29/24 18:56 POC Glucose 131 mg/dl (70-106) White Blood Count 7.4 10^3/uL (4.4-10.8) Red Blood Count 5.08 10^6/uL (4.5-5.90) Hemoglobin 14.6 g/dL (13.5-17.5) Hematocrit 42.6 % (41.0-53.0) Mean Corpuscular Volume 83.8 fL (80.0-100.0) Mean Corpuscular Hemoglobin 28.7 pg (28.0-32.0) Mean Corpuscular Hemoglobin Concent 34.2 g/dL (32.0-36.0) Red Cell Distribution Width 13.7 % (11.8-14.3) Platelet Count 280 10^3/uL (140-450) Mean Platelet Volume 9.0 fL (6.9-10.8) Neutrophils (%) (Auto) 57.3 % (37.0-80.0) Lymphocytes (%) (Auto) 31.1 % (10.0-50.0) Monocytes (%) (Auto) 9.8 % (0.0-12.0) Eosinophils (%) (Auto) 1.2 % (0.0-7.0) Basophils (%) (Auto) 0.6 % (0.0-2.0) Neutrophils # (Auto) 4.2 10 ^3/uL (1.6-8.6) Lymphocytes # (Auto) 2.3 10 ^3/uL (0.4-5.4) Monocytes # (Auto) 0.7 10 ^3/uL (0-1.3) Eosinophils # (Auto) 0.1 10 ^3/uL (0-0.8) Basophils # (Auto) 0 10 ^3/uL (0-0.2) Nucleated Red Blood Cells 0.1 % Sodium Level 143 mmol/L (136-145) Potassium Level 3.5 mmol/L (3.5-5.1) Chloride Level 107 mmol/L (98-107) Carbon Dioxide Level 23 mmol/L (20-31) Anion Gap 13 (5-15) Blood Urea Nitrogen 7 mg/dL (9-23) Creatinine 0.86 mg/dL (0.700-1.30) Glomerular Filtration Rate Calc 104 mL/min (>90) BUN/Creatinine Ratio 8.1 (10.0-20.0) Serum Glucose 95 mg/dL (74-106) Calcium Level 10.3 mg/dL (8.7-10.4) Total Bilirubin 0.8 mg/dL (0.2-1.0) Aspartate Amino Transferase (AST) 10 U/L (<34) Alanine Aminotransferase (ALT) 10 U/L (7-40) Alkaline Phosphatase 55 U/L (46-116) Total Protein 7.2 g/dL (5.7-8.2) Albumin 4.6 g/dL (3.2-4.8) Lipase 35 U/L (12-53) Urine Color Light-yellow (Yellow) Urine Clarity Clear (Clear) Urine pH 5.5 (5.0-9.0) Urine Specific [place] 1.017 (1.001-1.035) Urine Protein Negative (Negative) Urine Ketones 2+ (Negative) Urine Blood Negative /uL (Negative) Urine Nitrite Negative (Negative) Urine Bilirubin Negative (Negative) Urine Urobilinogen Normal mg/dL (Negative) Urine Leukocyte Esterase Negative /uL (Negative) Urine RBC 1 /hpf (0 - 3) Urine Microscopic WBC 2 /HPF (0-3) Urine Squamous Epithelial Cells Few /hpf (<5) Urine Bacteria None seen /hpf (None Seen) Urine Mucus Few (None Seen) Urine Glucose Normal mg/dL (Normal) Test 10/29/24 06:30 10/29/24 06:22 10/29/24 02:12 10/28/24 23:50 SARS-CoV-2 Antigen (Rapid) Negative (NEGATIVE) Erythrocyte Sedimentation Rate 17 mm/hr (0-20) Prothrombin Time 11.2 sec (9.3-11.8) Prothrombin Time INR 1.06 (0.9-1.15) Activated Partial Thromboplast Time 28.6 SEC (24.5-34.5) Hemoglobin A1c 7.5 % A1C (<5.7) Troponin I High Sensitivity < 3 ng/L (</=54) C-Reactive Protein High Sensitivity 0.34 mg/dL (<1.0) B-Type Natriuretic Peptide 11.89 pg/mL (0-100) Triglycerides Level 105 mg/dL (< 150) Cholesterol Level 222 mg/dL (< 200) LDL Cholesterol 155 mg/dL (< 100) HDL Cholesterol 51 mg/dL (40-59) Lactic Acid Level 1.9 mmol/L (0.4-2.0) Urine Hyaline Casts Few /lpf (0 - 2) Other Laboratory Tests 10/31/24 05:01 Brief Hx & Hospital Course: HISTORY OF PRESENT ILLNESS: 54-year-old male patient with past medical history of diabetes and hypertension presented with complaints of abdominal pain. Patient described that he has diffuse abdominal pain which is pressure-like, on and off for last three days which is associated with nausea and vomiting and diarrhea. Patient had two episodes of vomiting every day but did not contain any blood. Patient also had two episodes of loose stools every day for last three days. Patient denied any chest pain, shortness of breath, fever, chills, cough, urinary symptoms. Past medical history: Hypertension & Diabetes HOSPITAL COURSE: The patient was admitted on the line of acute pancreatitis, the patient was started on IV fluid, empiric antibiotic levofloxacin, and pain management. CT scan showed CT shows Contour irregularity of the bilateral kidneys and perinephric stranding, age-indeterminate. For the diabetes, the patient was given insulin according to mild sliding scale, the blood pressure were controlled with the losartan and amlodipine. Subsequent with the patient's was started on clear liquid diet which the rated and gradually advanced. On 11/01/2023, the patient was feeling better since admission. With the discharge plan discussed with the patient the patient discharged home. PHYSICAL EXAM ON DISCHARGE: General Appearance: Alert, Oriented X3, Cooperative, No acute distress HEENT: Atraumatic, PERRLA, EOMI, Mucous membrane moist/pink Respiratory: Clear to auscultation, Normal air movement Cardiovascular: Regular rate, Normal S1, Normal S2, No murmurs, no chest wall tenderness Abdominal: Normal bowel sounds, Soft, No tenderness, No hepatosplenomegaly, No masses Extremities: No clubbing, No cyanosis, No edema, Normal pulses, No tenderness/swelling Skin: No rashes, No breakdown, No significant lesion Neuro: Normal gait, Normal speech, Strength at 5/5 X4 ext, Normal tone, Sensation intact, Cranial nerves 3-12 NL, Reflexes 2+ Psych/Mental Status: Mental status NL, Mood NL DISCHARGE PLAN: Follow up with the PCP within 1 week after discharge. Follow up with the discharge Clinic within 1 week of discharge Losartan 50 mg daily Continue home meds FINAL DIAGNOSIS: intractable abdominal pain, due to GLP-1 induced Pancreatitis Acute pancreatitis Ruled out pyelonephritis Bilateral nephrolithiasis Can Not Rule Out Sepsis Lactic acidosis Colonic diverticulosis without CT evidence of diverticulitis Shotty Retroperitoneal LN DM-2 Essential hypertension Condition at Discharge: Stable Final Diagnosis/Problems List . Discharge Disposition: Home Discharge Instruct/Medications Diet: Cardiac 2g Na,low cholest Activity: No Restrictions, As Tolerated Follow Up/Referral: Follow up with the PCP within 1 week of the discharge. Follow up with the discharge Clinic within 1 week of the discharge. Medications: Losartan 50 mg daily Continue home meds Discharge Statement: "Patient was advised to return to the ER or call 911 if any headaches, dizziness, shortness of breath, chest pain, abdominal pain, bleeding, fevers, or worsening of medical condition. Patient was counseled about treatment plan, medications, possible side effects, patientverbalized understanding. All questions were answered to the best of my ability. This discharge took greater then 30 minutes in planning, reviewing documentation, counseling the patient, and discussing with other team members." ASSESSMENT ASSESSMENT Assessment Pancreatitis Addendum Addendum Addendum I was physically present for the arellano portions of the service provided to patient by THE RESIDENT. I have reviewed the documentation, discussed the case with resident and agree with the resident's documentation except as noted. Also the patient's clinical case was discussed with the patient's nurse. This medical document was created using an electronic medical record system with computerized dictation system. Although this document has been carefully reviewed, there might still be some phonetic and typographical errors. These areas are purely typographical due to imperfections of the software programs, and do not reflect any compromise in the patient's medical care. Late signature. Date of Service: Oct 31, 2024 Billing Provider: MICHELLE WALTER MD Common Visit Codes: 92113-NCC/OBS DISCH DAY >30min WATSON GUARDADO RESDIENT Oct 31, 2024 12:06 MICHELLE WALTER MD Nov 01, 2024 05:48
[2024-10-31 13:19] VITALS: BP 148/86; PULSE 73; RESP 19; TEMP 98.3; O2SAT 98
[2024-10-31 13:21] VITALS: BP 150/95; TEMP 36.8
== END 2024-10-31 13:50 | disposition home or self-care (01) | DRG 282 ==
LOC: ER 23:07 → OVERFLOW 10-29 04:15 → CENTRAL 10-29 22:35
PROVIDERS: ADMIT Student in an Organized Health Care Education/Training Program; ATTEND Emergency Medicine
DX: K85.90 Acute pancreatitis without necrosis or infection, unspecified (principal); A41.9 Sepsis, unspecified organism; E87.20 Acidosis, unspecified; E11.9 Type 2 diabetes mellitus without complications; I10 Essential (primary) hypertension; N20.0 Calculus of kidney; K57.30 Diverticulosis of large intestine without perforation or abscess without bleeding; Z20.822 Contact with and (suspected) exposure to COVID-19
CPT/HCPCS: 36415; 74176; 76700; 80053; 80061; 81001; 82962; 83036; 83605; 83690; 83880; 84484; 85025; 85610; 85652; 85730; 86141; 87040; 87081; 87086; 87426; 96365; 96375; G0378; J1815; J1956; J2470